=== PATIENT | female | born 1980 | race Caucasian/White ===

== ENCOUNTER 2019-11-09 22:09 | Emergency (ER) | payer BC, SELFPAY ==
[2019-11-09 22:11] VITALS: BP 130/70; PULSE 85; RESP 16; TEMP 37.1; O2SAT 100
--- NOTE | 2019-11-09 22:15 | ED.DIZZY ---
HPI - Dizziness General Chief Complaint: Dizziness Stated Complaint: low blood pressure Time Seen by Provider: 11/09/19 22:14 Source: patient Mode of arrival: ambulatory Limitations: no limitations History of Present Illness HPI Narrative: Patient is a 39 year old female who presents to the ED with complaints of near syncope. Patient states that she had one episode of diarrhea and she started feeling faint and almost passed out. She states that her blood pressure dropped to 83/47. Patient reports associated nausea, but denies vomiting. She has not been around any one sick. Patient has children at home but they are not sick and she has not left the house in 14 days. She denies blood in her diarrhea. She has not been travelling, drinking well water, or camping. She denies fever, cough, or cold. Patient denies a chance of and has a history of a tubal ligation, uterine ablation, ovarian cyst removal, and a tonsillectomy. She started taking Zoloft 3 months ago. Patient quit smoking 80 days ago. She drinks occasionally. Patient denies smoking marijuana. Dulce patrick is at the bedside and she works at a [employer]. She has been working from home due to the current pandemic. MD elicited complaint: near syncope Timing: sudden onset Description: near-syncope Associated symptoms: nausea and other (diarrhea) Related Data Allergies Allergy/AdvReac Type Severity Reaction Status Date / Time No Known Allergies Allergy Unverified 08/15/14 09:28 Review of Systems Review of Systems: All systems reviewed & are unremarkable except as noted in HPI and below Constitutional: Constitutional: Denies fever(s) and Denies other (cold) Respiratory: Respiratory: Denies cough Gastrointestinal: Gastrointestinal: Reports diarrhea, Reports nausea and Denies vomiting Neurologic: Reports syncope (near) [facility] Past Medical History Medical History (Updated 11/09/19 @ 23:35 by Lula Price MD) Depression Surgical History Surgical History (Updated 11/09/19 @ 22:36 by Kim Garibay) H/O prior ablation treatment uterine H/O tubal ligation History of removal of ovarian cyst Hx of tonsillectomy Social History Social History (Updated 11/09/19 @ 22:36 by Kim Garibay) Smoking status: Former smoker Second hand tobacco smoke exposure: No Alcohol intake: current Alcohol use details: drinks occasionally Substance use: never Occupation/Education: occupation 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 Exam Const: General: cooperative, healthy appearing and no acute distress Nutritional Appearance: thin HENMT: Mouth: Yes dry mucous membranes Eyes: Pupils: Equal, round and reactive pupils present EOM: EOMs intact bilaterally Resp: Effort & Inspection: normal respiratory effort Auscultation: clear to auscultation bilaterally and no wheezes Cardio: Rate: regular rate Rhythm: regular rhythm Heart sounds: no murmurs GI: Inspection: normal to inspection GI Palp: No abdominal tenderness and Yes Soft to palpation Skin: General skin exam: normal color and dry skin Neuro: General: patient oriented x3 (alert) and no focal motor deficits Extrem: General: full ROM Psych: Mental Status: mental status grossly normal Affect: normal affect Course Reevaluation(s) Reevaluation #1: [id number] She is feeling much better after the IV fluids. Discussed presyncope and vaso-vagal reactions. She is to drink more fluids and eat some salt. Her is supportive. Vital Signs Vital signs: Vital Signs Temperature 98.7 F 11/09/19 22:11 Pulse Rate 85 11/09/19 22:11 Respiratory Rate 16 11/09/19 22:11 Blood Pressure 130/70 11/09/19 22:11 Pulse Oximetry 100 11/09/19 22:11 Temperature 97.9 F 11/09/19 22:22 Pulse Rate 77 11/09/19 22:22 Respiratory Rate 12 11/09/19 22:22 Blood Pressure 104/74 11/09/19 22:22 Pulse Oximetry 99 11/09/19 22:22 MDM - Dizziness Lab Data Result
[2019-11-09 22:22] VITALS: BP 104/74; PULSE 77; RESP 12; TEMP 36.6; O2SAT 99
--- NOTE | 2019-11-09 22:24 | ECG_ITS ---
Measurements Intervals [place] Rate: 81 P: 73 DE: 174 QRS: 52 QRSD: 79 T: 43 QT: 357 QTc: 415 Interpretive Statements SINUS RHYTHM BORDERLINE ST ABNORMALITY- ANTEROLAT/INF LEADS BASELINE WANDER- V1 BORDERLINE ECG Electronically Signed On 11-10-2019 7:12:08 CDT by Teja Winchester D.O.
[2019-11-09 22:32] LABS: Basophils Absolute Auto 0.1 K/mm3 (0.0-0.1); Basophils Percent Auto 0.7 % (0.2-1.2); Eosinophils Absolute Auto 0.3 K/mm3 (0-0.3); Eosinophils Percent Auto 3.8 % (0-4.4); Hematocrit 40.3 % (37.0-47.0); Immature Granulocyte Absolute 0.02 K/mm3 (0.00-0.031); Immature Granulocyte Percent A 0.3 % (0-0.5); Lymphocytes Absolute Auto 2.37 K/mm3 (0.9-3.2); Lymphocytes Percent Auto 33.3 % (18.3-44.2); Mean Corpuscular HGB Conc 32.3 g/dl (32-36); Mean Corpuscular Hemoglobin 29.4 pg (26-34); Mean Corpuscular Volume 91.2 fl (80-100); Mean Platelet Volume 8.6 fl (7.4-10.4); Monocytes Absolute Auto 0.5 K/mm3 (0.1-0.6); Monocytes Percent Auto 7.6 % (2.6-8.5); Neutrophils Absolute Auto 3.9 K/mm3 (1.3-6.7); Neutrophils Percent Auto 54.3 % (45.5-73.1); Platelet Count Result 188 k/mm3 (150-375); Red Blood Count 4.42 M/mm3 (4.2-5.4); Red Cell Distribution Width 12.4 % (11.5-14.5); White Blood Count 7.1 K/mm3 (4.5-10.0)
[2019-11-09] MEDS: SODIUM CHLORIDE 0.9% IV 500 ML 999 ML IV CONT (22:33)
[2019-11-09 22:43] LABS: Alanine Aminotransferase 9 U/L (4-35); Albumin Level 4.2 g/dL (3.5-5.1); Alkaline Phosphatase 70 U/L (38-126); Aspartate Amino Transferase 22 U/L (14-36); Bilirubin,Total 0.2 mg/dL (0.2-1.3); Blood Urea Nitrogen 15 mg/dL (7-17); Calcium 8.8 mg/dL (8.4-10.2); Carbon Dioxide 28 mmol/L (22-30); Chloride 104 mmol/L (98-107); Estimated Glomerular Filt Rate > 60; Glucose 92 mg/dL (65-105); Sodium 138 mmol/L (137-145)
[2019-11-09 23:28] LABS: Add Urine Microscopic? YES; Amorphous Sediment Urine Few; Appearance Urine Cloudy (Clear); Bilirubin Urine Negative (Negative); Blood Urine Negative (Negative); Color Urine Yellow (Yellow); Glucose Urine UA Negative (Negative); Ketones Urine Negative (Negative); Leukocyte Esterase Ur Negative LEU/UL (Negative); Nitrate Urine Negative (Negative); Protein Urine Negative (Negative); RBC Urine 0-2 /hpf (0-2); Specific Grav Ur 1.013 (1.001-1.035); Squamous Epithelial Cell Urine Occasional /hpf (Few); Urobilinogen Urine Negative mg/dL (<2.0); WBC Urine 0-3 /hpf
[2019-11-09 23:50] VITALS: BP 104/70; PULSE 73; RESP 17; O2SAT 100
== END 2019-11-09 23:52 | disposition home or self-care (01) ==
PROVIDERS: Emergency Provider Emergency Medicine; PCP Family Medicine
DX: R55 Syncope and collapse (principal); R19.7 Diarrhea, unspecified; Z87.891 Personal history of nicotine dependence
CPT/HCPCS: 36415; 80053; 81001; 85025; 93005; 99283; J7040

== ENCOUNTER 2019-12-13 11:32 | Outpatient (CLI) | payer BC, SELFPAY ==
--- NOTE | ~2019-12-13 | XR_ITS ---
EXAMINATION: XR chest 2V DATE: 12/13/2019 11:50 INDICATION: Acute bronchitis, unspecified. TECHNIQUE: Frontal and lateral views of the chest were obtained. COMPARISON: None. FINDINGS: The chest demonstrates clear lungs without pneumonia, pleural effusion, or pneumothorax. Th e heart size is normal. IMPRESSION: 1. No acute cardiopulmonary disease. Reviewed, dictated and finalized at location A.
== END 2019-12-13 11:33 | disposition home or self-care (01) ==
LOC: ANHIMG 11:38
PROVIDERS: PCP Family Medicine; Visit Provider Physician Assistant
DX: J20.9 Acute bronchitis, unspecified (principal)
CPT/HCPCS: 71046

== ENCOUNTER 2020-02-25 09:01 | Outpatient (CLI) | payer BC, SELFPAY ==
[2020-02-25 12:20] LABS: CRP < 0.5 mg/dL (<1.0); Creatine Kinase 50 U/L (30-135); Lactate Dehydrogenase 360 U/L (313-618)
[2020-02-25 12:21] LABS: Complement C3 106 mg/dL (88-165); Rheumatoid Factor < 8.6 IU/ML (<12)
[2020-02-25 12:25] LABS: Free T4 Free Thyroxine 0.93 ng/mL (0.78-2.19)
[2020-02-25 12:27] LABS: Erythrocyte Sedimentation Rate 8 mm/hr (0-20)
[2020-02-25 12:41] LABS: Total Triiodothyronine (T3) 1.42 NG/ML (0.97-1.69)
[2020-03-01 05:05] LABS: Anti Cardio Antibody IgM <12 MPL (<=12); Anti Cardiolipin Antibody IgA <11 APL (<=11); Anti Cardiolipin Antibody IgG <14 GPL (<=14)
[2020-03-01 21:51] LABS: Anti Cyclic Citrullinated Pept <16 Units (<20)
[2020-03-02 03:09] LABS: Lupus dRVVT 1:1 Mix Interpreta Not Indicated; Lupus dRVVT Screen 34 sec (<=45); PTT-LA Screen 33 sec (<=40)
[2020-03-02 11:18] LABS: Aldolase 3.7 U/L (<=8.1)
== END 2020-02-25 09:02 | disposition home or self-care (01) ==
LOC: ANHLAB 09:05
PROVIDERS: PCP Family Medicine; Visit Provider Internal Medicine
DX: R89.9 Unspecified abnormal finding in specimens from other organs, systems and tissues (principal); R76.8 Other specified abnormal immunological findings in serum; M19.90 Unspecified osteoarthritis, unspecified site
CPT/HCPCS: 36415; 82085; 82550; 83615; 84439; 84443; 84480; 85613; 85652; 85730; 86140; 86146; 86147; 86160; 86200; 86430

== ENCOUNTER 2021-09-24 09:18 | Outpatient (CLI) | payer BC, SELFPAY ==
--- NOTE | ~2021-09-24 | US_ITS ---
EXAMINATION: US thyroid DATE: 09/24/2021 09:32 INDICATION: Thyroid nodule TECHNIQUE: Multiple ultrasound images of the thyroid were obtained. COMPARISON: 03/08/2019 FINDINGS: The right thyroid lobe measures 6.2 x 1.6 x 1.8 cm. The left thyroid lobe measures 5.6 x 1.6 x 1.9 c m. 6 mm wider than tall solid hypoechoic nodule with smooth margins at the inferior right thyroid (T I-RADS 4, moderately suspicious , FNA if >=1.5 cm, annual followup is >=1 cm). There is normal echote xture, echogenicity and vascular flow throughout the thyroid gland. IMPRESSION: 1. Persistent enlarged thyroid with unchanged 6 mm TI RADS 4 left thyroid nodule which remains below threshold for either biopsy or ultrasound follow-up. Reviewed, dictated and finalized at location A. R [employer] IMPRESSION: 1. Persistent enlarged thyroid with unchanged 6 mm TI RADS 4 left thyroid nodul e which remains below threshold for either biopsy or ultrasound follow-up.
== END 2021-09-24 09:19 ==
PROVIDERS: PCP Nurse Practitioner Family; Visit Provider Nurse Practitioner Family
DX: E04.1 Nontoxic single thyroid nodule (principal)
CPT/HCPCS: 76536

== ENCOUNTER → 2022-04-15 13:27 | Outpatient (CLI) | payer OTHER, SELFPAY ==
--- NOTE | ~2022-04-15 | MM_ITS ---
EXAMINATION: MM screening daryl BI w kyle HISTORY: Screening mammogram TECHNIQUE: Craniocaudal and mediolateral oblique 3-D tomosynthesis images were obtained and synthetic 2-D images were generated. Bilateral rotated lateral CC views. CAD analysis was submitted and interp reted. COMPARISON: 05/15/2017 Limited left breast ultrasound: 8 x 3 mm oval hypoechoic mass with microlobula arti margins was reported at 7:00 location 4.5 cm from nipple, corresponding to a palpable abnormality . Clinical history of benign left breast biopsy in 2017 BREAST PARENCHYMAL COMPOSITION: The breasts are heterogeneously dense, which may obscure small masses . FINDINGS: There is no evidence of suspicious mass, calcification, or architectural distortion to sugg est malignancy in either breast. There has been no suspicious interval change. IMPRESSION: 1. No mammographic evidence of malignancy. 2. Recommend routine screening mammography in one year. BI-RADS Category 1: Negative Reviewed, dictated and finalized at location A.
== END ==
PROVIDERS: PCP Obstetrics & Gynecology; Visit Provider Obstetrics & Gynecology
DX: Z12.31 Encounter for screening mammogram for malignant neoplasm of breast (principal)
CPT/HCPCS: 77063; 77067

== ENCOUNTER 2022-10-19 13:55 | Emergency (ER) | payer OTHER, SELFPAY ==
[2022-10-19 14:07] VITALS: BP 128/68; PULSE 78; RESP 16; TEMP 36.8; O2SAT 99
--- NOTE | 2022-10-19 14:25 | ED.GENADULT ---
HPI - General Adult General Chief complaint: Eye Problems Stated complaint: Lt Eye Irritation Time Seen by Provider: 10/19/22 14:26 Source: patient Mode of arrival: ambulatory Limitations: no limitations History of Present Illness HPI narrative: 42-year-old female patient presents to the [facility] with complaints of left eye pain. Patient states that she was clipping her acrylic nails today and 1 flung up and hit her and to the left eye. Patient states it is painful she does have sensitivity to light and feels like there is something in her eye. Related Data Home Medications Medication Instructions Recorded Confirmed sertraline 25 mg tablet (Zoloft) 25 mg PO DAILY 02/06/21 10/19/22 Allergies Allergy/AdvReac Type Severity Reaction Status Date / Time No Known Allergies Allergy Verified 10/19/22 14:21 Review of Systems Review of Systems: CONSTITUTIONAL: Denies fever, chills, or sweats. EYES: Denies visual changes, Positive left eye pain and redness, denies discharge. ENT: Denies rhinorrhea, congestion, sore throat, or otalgia. CARDIOVASCULAR: Denies chest pain, palpitations, or edema. RESPIRATORY: Denies cough or dyspnea. GASTROINTESTINAL: Denies abdominal pain, nausea, vomiting, or diarrhea. GENITOURINARY: Denies dysuria or hematuria. SKIN: Denies rash or itching. MUSCULOSKELETAL: Denies back pain, joint pain, or myalgia. NEUROLOGIC: Denies headache, numbness, or weakness. PSYCHIATRIC: Denies anxiety or depression. [facility] Past Medical History Medical History KANG positive (~08/2019) Depression Concepción's thyroiditis Hypertension Screening mammogram, encounter for Surgical History Surgical History H/O tubal ligation (05/04/15) History of breast biopsy (05/28/17) lt breast US, core bx--benign findings History of colposcopy with cervical biopsy 10/05/09 squamous atypia, suggestive koilocytotic atypia focal History of dilation and curettage (05/29/17) hscope d&c/novasure ablation--fragments of proliferative endometrium History of endometrial ablation (05/29/17) hscope d&c/novasure ablation--fragments of proliferative endometrium History of lumpectomy of left breast (07/16/17) benign History of ovarian cystectomy 02/27/00 lscope lt ovarian cystectomy--hemorrhagic corpus luteal cyst History of robot-assisted laparoscopic hysterectomy (01/27/20) RA TLH--symptomatic fibroid, failed endometrial ablation Hx of tonsillectomy (~2003) Family History Family History Grandparent Leukemia paternal grandmother Social History Social History Smoking packs per day: 0.5 Smoking cigarettes per day: 10.0 Smoking status: Current every day smoker Tobacco type: cigarettes Second hand tobacco smoke exposure: No Alcohol intake: current Alcohol use details: drinks occasionally Substance use: never Substance use type: does not use Living arrangements: other Additional living arrangements comments: Occupation/Education: occupation 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 Gender identity (if verbalized by the patient): Female Sexual Orientation (if Verbalized by the Patient): Straight or Heterosexual Comments At the time of my signature I agree with nursing past medical history, surgical, social, and family history. There is no relevant family history pertinent to the presenting complaint. Exam Narrative: GENERAL: Well-appearing, well-nourished, and in no acute distress. HEAD: Normocephalic, atraumatic. EYES: PERRLA and EOM intact without limitation or complaint of pain, no periorbital soft tissue swelling ,no erythema, warmth or tenderness noted, no obvious deformity. No crusting or swelling.no tearing or draining.No photophobia. No nystagmus No
== END 2022-10-19 14:41 | disposition home or self-care (01) ==
PROVIDERS: Emergency Provider Nurse Practitioner Family; PCP Nurse Practitioner Family
DX: S05.02XA Injury of conjunctiva and corneal abrasion without foreign body, left eye, initial encounter (principal); F32.A Depression, unspecified; I10 Essential (primary) hypertension; E06.3 Autoimmune thyroiditis; F17.210 Nicotine dependence, cigarettes, uncomplicated; W22.8XXA Striking against or struck by other objects, initial encounter
CPT/HCPCS: 99213; A9270; G0463

== ENCOUNTER → 2023-05-08 09:26 | Outpatient (CLI) | payer OTHER, SELFPAY ==
--- NOTE | ~2023-05-08 | MM_ITS ---
EXAMINATION: MM screening daryl BI w kyle HISTORY: Screening mammogram TECHNIQUE: Craniocaudal and mediolateral oblique 3-D tomosynthesis images were obtained and synthetic 2-D images were generated. CAD analysis was submitted and interpreted. COMPARISON: 04/15/2022 BREAST PARENCHYMAL COMPOSITION: The breasts are heterogeneously dense, which may obscure small masses . FINDINGS: No suspicious mass, calcification, or architectural distortion are identified in either lexi ast to suggest malignancy. There has been no suspicious interval change. IMPRESSION: 1. No mammographic evidence of malignancy. 2. Recommend routine screening mammography in one year. BI-RADS Category 1: Negative Reviewed, dictated and finalized at location A.
== END ==
PROVIDERS: PCP Obstetrics & Gynecology; Visit Provider Obstetrics & Gynecology
DX: Z12.31 Encounter for screening mammogram for malignant neoplasm of breast (principal)
CPT/HCPCS: 77063; 77067

== ENCOUNTER 2024-05-13 09:08 | Outpatient (CLI) | payer OTHER, SELFPAY ==
--- NOTE | ~2024-05-13 | MM_ITS ---
EXAMINATION: MM screening daryl BI w kyle HISTORY: Screening TECHNIQUE: Craniocaudal and mediolateral oblique 3-D tomosynthesis images were obtained and synthetic 2-D images were generated. CAD analysis was submitted and interpreted. COMPARISON: Comparison to multiple prior studies sequentially, with oldest reviewed study dated 04/15. BREAST PARENCHYMAL COMPOSITION: Dense: The breasts are heterogeneously dense, which may obscure small masses FINDINGS: There is no evidence of suspicious mass, calcification, or architectural distortion to sugg est malignancy in either breast. There has been no suspicious interval change. IMPRESSION: 1. No mammographic evidence of malignancy. 2. Recommend routine screening mammography in one year. BI-RADS Category 1: Negative Reviewed, dictated and finalized at location B.
== END 2024-05-13 09:09 | disposition home or self-care (01) ==
PROVIDERS: PCP Obstetrics & Gynecology; Visit Provider Obstetrics & Gynecology
DX: Z12.31 Encounter for screening mammogram for malignant neoplasm of breast (principal)
CPT/HCPCS: 77063; 77067

== ENCOUNTER 2024-07-07 07:48 | Outpatient (CLI) | payer OTHER, SELFPAY ==
--- NOTE | ~2024-07-07 | XR_ITS ---
Lumbosacral Spine: AP and lateral views Clinical History: Pain Findings: The normal lordotic curve is maintained. The vertebral bodies and posterior elements are i ntact. There are minimal degenerative disc changes and minimal facet joint degenerative changes. The sacroiliac joints are normally outlined. Impression: Minimal degenerative change, as above. Reviewed, dictated and finalized at location M. E GLAZER Impression: Minimal degenerative change, as above.
== END 2024-07-07 07:49 | disposition home or self-care (01) ==
LOC: MICIMG 07:51
PROVIDERS: PCP Nurse Practitioner Family; Visit Provider Nurse Practitioner Family
DX: M51.369 Other intervertebral disc degeneration, lumbar region without mention of lumbar back pain or lower extremity pain (principal); M47.896 Other spondylosis, lumbar region
CPT/HCPCS: 72100

== ENCOUNTER 2025-05-18 08:39 | Outpatient (CLI) | payer OTHER, SELFPAY ==
--- NOTE | ~2025-05-18 | MM_ITS ---
EXAMINATION: MM screening daryl BI w kyle HISTORY: Screening TECHNIQUE: Craniocaudal and mediolateral oblique 3-D tomosynthesis images were obtained and synthetic 2-D images were generated. CAD analysis was submitted and interpreted. COMPARISON: 05/08/2023 BREAST PARENCHYMAL COMPOSITION: The breasts are extremely dense, which lowers the sensitivity of mammography. FINDINGS: There is no evidence of suspicious mass, calcification, or architectural distortion to suggest malignancy. There has been no suspicious interval change. IMPRESSION: 1. No mammographic evidence of malignancy. Recommend routine screening mammography in one year. BI-RADS Category 2: Benign finding(s) Reviewed, dictated and finalized at location Q. IMPRESSION: 1. No mammographic evidence of malignancy. Recommend routine screening mammogra phy in one year. BI-RADS Category 2: Benign finding(s)
== END 2025-05-18 08:40 | disposition home or self-care (01) ==
LOC: MICIMG 08:40
PROVIDERS: PCP Obstetrics & Gynecology; Visit Provider Obstetrics & Gynecology
DX: Z12.31 Encounter for screening mammogram for malignant neoplasm of breast (principal)
CPT/HCPCS: 77063; 77067